=== PATIENT | female | born 2000 | race Caucasian/White ===

== ENCOUNTER 2025-07-27 12:34 | Emergency (ER) | payer OTHER, SELFPAY ==
--- OUTSIDE RECORDS SUMMARY | 2025-06-25 07:47 | XMS_ITS | Encounter Summary ---
Author Organization [facility] Address [address] [place] [address] Care Team Providers Care Inspector Hot Forgings Name Role Phone Elsewhere, Pcp Primary Care Provider Unavailabl e Reason for Visit * Reason Comments Weakness - Generalized Patient presents with mom and dad. They state patient has hx of POTS. She has episodes several times a year where she gets weak, has minimal vocal response, and has seizure like movements or tics. She does not have a seizure disorder diagnosed. Normally, they state these episodes last 45 minutes and she is able to ambulate. Today it is lasting longer, started at 0600, and she has been having difficulty walking. They states after these episodes she needs several days of rest to recover. Encounter Details Date Type Department Care Team (Late st Contact Info) Description 06/25/2025 7:47 AM CDT - 06/25/2025 10:37 AM CDT Emergency [facility] [address] [place] [address] [phone] Anita Barraza D.O. 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 - 06/25/2025 10:19 AM CDT Continue to take your home medications as prescribed. Ensure you are drinking 60-80 oz of water per day to stay hydrated. I encouraged at least 30 minutes of cardiac exercise per day wear your heart rate is persistently elevated above 120 beats per minute. This has been shown to help with autonomic dysregulation syndrome such as POTS. * Attachments The following attachments cannot be sent through Care Everywhere. * Syncope Adult [id number] (Tanzanian) documented in this encounter Medications at Time of Discharge cetirizine (ZyrTEC) 10 mg tablet Take 1 tablet by mouth daily. 07/06/2020 cholecalciferol (VITAMIN D3) 50 mcg (2,000 Unit) capsule Take 1 capsule by mouth daily. 09/13/2014 DULoxetine (CYMBALTA) [address] capsule Take 60 mg by mouth daily. 05/08/2023 EPINEPHrine 0.3 mg/0.3 mL injection syringe Inject 1 Pen intramuscularly daily as needed. 05/23/2023 ibuprofen (AdviL) 200 mg tablet Take by mouth as needed. 04/27/2013 ketotifen (ZADITOR) 0.025 % (0.035 %) ophthalmic solution Administer 1 drop into both eyes daily. 05/31/2021 levalbuterol (XOPENEX HFA) 45 mcg/actuation inhaler Inhale 1-2 puffs as needed. 05/08/2023 linaCLOtide (Linzess) 145 mcg capsule Take 1 capsule by mouth daily. 12/09/2024 multivitamin (One-A-Day Essential) tablet Take 1 tablet by mouth daily. pantoprazole (Protonix) 40 mg EC tablet Take 40 mg by mouth daily. Jewell 28 0.15-0.03 mg per tablet Take 1 tablet by mouth daily. 08/21/2023 SUMAtriptan (IMITREX) 25 mg tablet Take 25 mg by mouth every 2 (two) hours as needed. 05/31/2021 triamcinolone (NASACORT) 55 mcg/actuation nasal spray Administer 2 sprays into nostril(s) daily. 07/06/2020 documented as of this encounter ED Notes * Anita Barraza D.O. - 06/25/2025 10:37 AM CDT The patient verbally consented to an audio recording of their visit to assist with the completion of documentation. SUBJECTIVE CHIEF COMPLAINT/REASON FOR VISIT Weakness - Generalized (Patient presents with mom and dad. They state patient has hx of POTS. She has episodes several times a year where she gets weak, has minimal vocal response, and has seizurelike movements or tics. She does not have a seizure disorder diagnosed. Normally, they state theseepisodes last 45 minutes and she is able to ambulate. Today it is lasting longer, started at 0600, and she has been having difficulty walking. They states after these episodes she needs several days of rest to recover. ) HISTORY OF PRESENT ILLNESS History of Present Illness Sara Dela Cruz is a 25 year old female with POTS who presents with a fainting episode. She isaccompanied by her mother. She has a history of POTS diagnosed approximately 14 years ago following an illness. She experiences episodes a few times a year, characterized by feeling 'really kind of hot and tingling all over,' followed by cramping and a brief syncopal episode. During these episodes, she experiences sweating, clamminess, and a sensation of heat, which she recognizes as a precursor to fainting. A recent episode occurred while at work, where she felt these symptoms and sat down to prevent a fall. No trauma. She has undergone various diagnostic evaluations, including a Holter monitor in November, which showed a five-beat run of SVT, otherwise normal. She has had normal lab results in the past. No tongue biting, tongue trauma, or incontinence during these episodes. She reports a history of chronic fatigue, stating she 'never feels rested' upon waking. Her past medical history includes a tick bite and alpha-gal syndrome. She has undergone a colonoscopy and CT scan for abdominal issues in the past. She has not been diagnosed with anemia, and her periods are not described as excessively heavy. OBJECTIVE Initial Vitals Temperature 06/25/25 0812 37 ??C Pulse Rate 06/25/25 0745 86 Heart Rate 06/25/25 0745 88 Resp Rate 06/25/25 0745 (!) 27 Blood Pressure 06/25/25 0745 (!) 137/94 SpO2 06/25/25 0745 99 % Pain Score 06/25/25 0812 6 PHYSICAL EXAMINATION Constitutional: Nursing note and vitals reviewed. No distress. HENT: Head: Normocephalic. Mouth/Throat: Mucous membranes are moist. Eyes: Conjunctivae and EOM are normal. Pupils are equal, round, and reactive to light. Neck: Neck supple. Cardiovascular: Normal rate, regular rhythm and normal heart sounds. Pulmonary/Chest: Effort normal and breath sounds normal. There is normal air entry. Abdominal: Soft. There is no abdominal tenderness. Musculoskeletal: General: No edema. Cervical back: Neck supple. Neurological: Alert and oriented to person, place, and time. She has normal sensation and cranial nerves II through XII intact. GCS eye subscore is 4. GCS verbal subscore is 4. GCS motor subscore is 6. Normal speech. She exhibits normal muscle tone. Coordination and gait normal. Skin: Skin is warm and dry. ASSESSMENT/PLAN Medical Decision Making 25-year-old female with a history of POTS-like autonomic dysfunction presented after a recurrent syncopal episode at work, preceded by prodromal symptoms of feeling hot, tingling, and cramping, followed by brief loss of consciousness and myoclonic jerks. She has a longstanding history of similar episodes, chronic fatigue, and prior normal cardiac workup including EKG and Holter monitor. Exam was notable for normal vital signs, no evidence of seizure activity, and normal cardiopulmonary and neurologic findings. Urinalysis and EKG were normal during this visit. Differential diagnosis includes, but is not limited to: - Autonomic Dysfunction (POTS-like syndrome) with Syncope and Myoclonic Jerks: Recurrent syncope with myoclonic jerks is most consistent with autonomic dysfunction given longstanding history, normal cardiac workup, and absence of seizure features. - Seizure Disorder: Considered unlikely due to absence of tongue biting, incontinence, and supporting history or exam findings; myoclonic jerks attributed to syncope. Autonomic Dysfunction (POTS-like syndrome) with Syncope and Myoclonic Jerks and Chronic Fatigue - Administered IV fluids - Ordered urinalysis to assess concentration and check for protein or glucose spillage - Encouraged daily cardiac aerobic exercise - Discharged home with follow-up with primary care as needed Final Diagnoses: as of 06/25/252040 Syncope Anita Barraza D.O. 06/25/252044 documented in this encounter Plan of Treatment Not on file documented as of this encounter Procedures Procedure Name Priority Date/Time Associated Diagnosis Comments URINALYSIS WITH MICROSCOPIC IF INDICATED, U STAT 06/25/2025 9:42 AM CDT TEST, POCT, U (LAB) STAT 06/25/2025 9:42 AM CDT ECG STAT 06/25/2025 8:43 AM CDT GLUCOSE POCT, B Routine 06/25/2025 7:56 AM CDT documented in this encounter Results * Urinalysis with Microscopic if Indicated: Urine, Midstream (06/25/2025 9:42 AM CDT) Source Urine, Urine, Midstream 06/25/2025 9:47 AM CDT NPRG Clarity Clear Clear 06/25/2025 10:00 AM CDT NPRG Color Yellow 06/25/2025 10:00 AM CDT NPRG Comment: ----REFERENCE VALUE---- Colorless Yellow Myra Blood Negative Negative 06/25/2025 10:00 AM CDT NPRG Nitrite Negative Negative 06/25/2025 10:00 AM CDT NPRG Leukocyte Esterase Negative Negative 06/25/2025 10:00 AM CDT NPRG Protein Negative mg/dL 06/25/2025 10:00 AM CDT NPRG Comment: ----REFERENCE VALUE---- Negative Trace Glucose Negative Negative mg/dL 06/25/2025 10:00 AM CDT NPRG Ketones, QI(U) Negative Negative mg/dL 06/25/2025 10:00 AM CDT NPRG Bilirubin Negative Negative 06/25/2025 10:00 AM CDT NPRG pH 6.0 5.0 - 8.0 06/25/2025 10:00 AM CDT NPRG Specific [place] 1.010 1.001 - 1.035 06/25/2025 10:00 AM CDT NPRG Urobilinogen 0.2 0.2 - 1.0 mg/dL 06/25/2025 10:00 AM CDT NPRG Urine (Urine, Midstream) 06/25/2025 9:42 AM CDT 06/25/2025 9:47 AM CDT Anita Barraza D.O. LAB URINE ORDERABLES Final Resul t Performing Organization Address [facility] Co de Phone Number [facility] [address] [place] [address], [address] [address] * Test, POCT, Urine (Lab) (06/25/2025 9:42 AM CDT) Test, POCT, U Negative 06/25/2025 9:59 AM CDT NPRG Urine (Urine, Midstream) 06/25/2025 9:42 AM CDT 06/25/2025 9:47 AM CDT Anita Barraza D.O. LAB POCT ORDERABLES - DEVICE Fin al Result Performing Organization Address [facility] Co de Phone Number [facility] [address] [place] [address], [place] [phone] * ECG 12 Lead (06/25/2025 8:43 AM CDT) Ventricular Rate ECG/Min 81 BPM MUSE DE Interval 162 ms MUSE QRSD Interval 78 ms MUSE QT Interval 378 ms MUSE QTC Interval 439 ms MUSE P Delmont 49 degrees MUSE R [place] 76 degrees MUSE T Wave [place] 10 degrees MUSE 06/25/2025 8:43 AM CDT 06/25/2025 9:10 AM CDT Impressions MUSE - 06/25/2025 9:10 AM CDT Sinus rhythm Nonspecific T wave abnormality When compared with ECG of 22-Sep-2012 13:45, with sinus arrhythmia is no longer present Nonspecific T wave abnormality is now present Reviewed by CONOR Maldonado Narrative Procedure Note Meng Rajan Jr., M.D. - 06/25/2025 IMPRESSION: Sinus rhythm Nonspecific T wave abnormality When compared with ECG of 22-Sep-2012 13:45, with sinus arrhythmia is no longer present Nonspecific T wave abnormality is now present Reviewed by CONOR Maldonado us Anita Barraza D.O. ECG ORDERABLES Final Result MUSE NA * Glucose, POCT (06/25/2025 7:56 AM CDT) [facility] Glucose, POCT, B 103 70 - 140 mg/dL 06/25/2025 7:56 AM CDT NPRG Blood 06/25/2025 7:56 AM CDT 06/25/2025 8:02 AM CDT us Generic Rals LAB POCT ORDERABLES-MANUAL Final Result [facility] [address] [place] [address], [place] [facility] [address] [place] [address] documented in this encounter Visit Diagnoses Diagnosis Syncope- Primary documented in this encounter Administered Medications Inactive Administered Medications - up to 3 most recent administrations Medication Order MAR Action Action Date Dose Rate Site ketorolac injection 15 mg (ToradoL) 15 mg, intravenous, Once, On Sat06/25/25 at 0807, For 1 dose, Adult IV push rate: Over 15 seconds. Peds IV push rate: Over 1 minute. Doses > 15 mg IV/IM are discouraged due to lack of additional analgesic benefit. Given 06/25/2025 8:15 AM CDT 15 mg NaCl 0.9 % bolus 1,000 mL 1,000 mL, intravenous, at 1,000 mL/hr, Administer over 1 Hours, Once, On Sat06/25/25 at 0807, For 1 dose New Bag 06/25/2025 8:14 AM CDT 1,000 mL 100 0 mL/hr sodium chloride 0.9 % injection 2-10 mL 2-10 mL, intravenous, As needed, line care, Starting on Sat06/25/25 at 0835 documented in this encounter Active and Recently Administered Medications Times are shown in CDT. Scheduled Medication Order 06/23/2025 06/24/2025 06/25/2025 ketorolac injection 15 mg (ToradoL) (COMPLETED) 15 mg, intravenous, Once, On Sat06/25/25 at 0807, For 1 dose, Adult IV push rate: Over 15 seconds. Peds IV push rate: Over 1 minute. Doses > 15 mg IV/IM are discouraged due to lack of additional analgesic benefit. 0815 (Given - Provid er: Kerry Rueda R.N.) NaCl 0.9 % bolus 1,000 mL (COMPLETED) 1,000 mL, intravenous, at 1,000 mL/hr, Administer over 1 Hours, Once, On Sat06/25/25 at 0807, For 1 dose 0814 (New Bag - Prov ider: Kerry Rueda R.N.)0940 (Stopped - Provider: Kerry Rueda R.N.) PRN Medication Order 06/23/2025 06/24/2025 06/25/2025 sodium chloride 0.9 % injection 2-10 mL(Linked Group 1) 2-10 mL, intravenous, As needed, line care, Starting on Sat06/25/25 at 0835 Linked Groups Order Group 1: Place peripheral IV: No upper extremity site restrictions (CANCELED) Upper extremity site restriction: No upper extremity site restrictions, Quantity of PIVs requested: One, STAT, Once, On Sat06/25/25 at 0836, For 1 occurrence And sodium chloride 0.9 % injection 2-10 mLJump to med 2-10 mL, intravenous, As needed, line care, Starting on Sat06/25/25 at 0835 documented in this encounter Care Teams Inspector Hot Forgings Relationship Specialty Start Date End Date Elsewhere, Pcp PCP - General 04/06/19 documented as of this encounter
--- OUTSIDE RECORDS SUMMARY | 2025-07-27 12:36 | XMS_ITS | Clinical Summary ---
Author Organization [facility] Address [address] [place] [id number] Care Team Providers Care Insurance Instructor Name Role Phone Shauna Naranjo MD Unavailable [phone] Goran Kinney MD PhD Unavailable [phone] Charisse Will MD Unavailable [phone] Diego Wynn Unavailable Unavailable Rony Perea MD Unavailable [phone] Alberto Jay MD Unavailable [phone] Gonzalo Grajeda MD Unavailable Unavailable Elizabeth Medrano Primary Care Provider Kiarra Landry PA-C Unavailable [phone] Allergies Active Allergy Reactions Criticality Noted Date Comments Chicken Meat (Diagnostic) Anaphylaxis High ALL Meat Dust Mites Itching 04/24/2013 Other (Do Not Use) Anaphylaxis High 12/21/2024 Animal Renin Seasonal Allergies 04/24/2013 Medications cetirizine (ZYRTEC ALLERGY) 10 MG tablet Take 10 mg by mouth daily. Active Multiple Vitamin (DAILY MULTIVITAMIN PO) Take 1 tablet by mouth daily. Active Cholecalciferol (VITAMIN D) 2000 UNITS CAPS Take 2,000 Units by mouth daily Active levonorgestrel-et hinyl estradiol (NORDETTE) 0.15-30 MG-MCG per tablet Take 1 tablet by mouth daily Active pantoprazole (PROTONIX) 40 MG EC tablet Take 40 mg by mouth daily. Active linaclotide (LINZESS) 145 MCG capsule Take by mouth every morning (before breakfast). Active DULoxetine (CYMBALTA) 60 MG capsule Take 60 mg by mouth daily. Active vitamin C (ASCORBIC ACID) 1000 MG TABS Take 1,000 mg by mouth daily. Active EPINEPHrine (ANY BX GENERIC EQUIV) 0.3 MG/0.3ML injection 2-pack Inject 1 Pen into the muscle. 3 Active albuterol (PROAIR HFA/PROVENTIL HFA/VENTOLIN HFA) 108 (90 Base) MCG/ACT inhaler Inhale 1-2 puffs into the lungs. 4 Active Active Problems Problem Noted Date Diagnosed Date Fatigue 01/07/2014 Irregular menses 01/07/2014 POTS (postural orthostatic tachycardia syndrome) 01/07/2014 Dizziness 01/07/2014 Resolved Problems Problem Noted Date Diagnosed Date Resolved Date Hypoglycemia 01/13/2014 01/17/2015 Family History Medical History Relation Comments Colon Polyps Father Hypertension Father Aortic Valve Replacement Maternal Uncle 1 Mitral Valve Replacement Maternal Uncle 2 Atrial fibrillation Maternal Uncle 3 Aortic dissection Mother Thyroid Disease Other 1 Paternal aunt felton s a thyroid condition and a scar on her neck, but not sure what she has or whether she had thyroid surgery. Diabetes Other 2 The same paterna l aunt who has a thyroid condition has T2D. Also maternal uncle has thyroid disease Myocardial Infarction Paternal Grandfather 2 lou or to , 5x CABG Atrial fibrillation Paternal Grandmother Relation Status Comments Father Maternal Uncle 1 Alive Maternal Uncle 2 Alive Maternal Uncle 3 Alive Mother Other 1 Other 2 Paternal Grandfather Paternal Grandmother Social History Tobacco Use Types Packs/Day Years Used Date Smoking Tobacco: Never Smokeless Tobacco: Never Alcohol Use Standard Drinks/Week Comments Yes 0 (1 standard drink = 0.6 oz pur e alcohol) occ PHQ-2 Answer Date Recorded PHQ-2 Score 0 11/06/2024 Adolescent Education Answer Date Record ed Getting School Help Needed Not on file 07/01 Comments No Sex and Gender Information Value Date Recorded Sex Assigned at Not on file 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 Gender Identity Not on file Sexual Orientation Not on file Last Filed Vital Signs Vital Sign Reading Time Taken Comments Blood Pressure 108/78 12/21/2024 1:20 PM CDT Pulse 88 12/21/2024 1:20 PM CDT Temperature 37.3 C (99.1 F) 07/17/2021 12:05 PM CDT Respiratory Rate 65 01/10/2016 3:09 PM CDT Oxygen Saturation 100% 12/21/2024 1:20 PM CDT Inhaled Oxygen Concentration - - Weight 93.9 kg (207 lb) 12/21/2024 1:20 PM CDT Height 180.3 cm (5' 11) 12/21/2024 1:20 PM CDT Body Mass Index 28.87 12/21/2024 1:20 PM CDT Plan of Treatment Health Maintenance Due Date Last Done Comments ADVANCE CARE PLANNING 1998 ANNUAL REVIEW OF HM ORDERS 1998 PNEUMOCOCCAL VACCINE: PEDIAT RICS (0 to 5 YEARS) AND AT-RISK PATIENTS (6 to 49 YEARS) (1 of 2 - PCV) 2017 YEARLY PREVENTIVE VISIT 04/20/2025 04/20/2024 COVID-19 VACCINE (3 - 2024-2 6 season) 2025 01/24/2021, 12/27/2020 INFLUENZA VACCINE (#1) 2025 , 07/06/2020, 08/10/2018, Additional history exists PAP 04/20/2027 04/20/2024 DTAP/TDAP/TD VACCINE (9 - Td or Tdap) 09/22/2034 09/22/2024, 07/26/2011, 04/01/2009, Additional history exists ZOSTER VACCINE (1 of 2) 01/30/2048 HEPATITIS B VACCINE Completed 1998, 1998, 1998 MENINGITIS VACCINE Completed 08/06/2016 HPV VACCINE Completed 05/26/2019, 06/08, 08/06/2016 TSH W/FREE T4 REFLEX Discontinued 07/17/2021, 07/17/2021, 01/05/2015, Additional history exists HEPATITIS C SCREENING Completed 04/20/2024 HIV SCREENING Completed 04/20/2024 PHQ-2 (once per calendar year) Completed 11/06/2024 Procedures Procedure Name Priority Date/Time Associated Diagnosis Comments T4 FREE Routine 07/17/2021 1:12 PM CDT from Last 3 Months or Most Recently Relevant to Health Maintenance Results * T4 free (07/17/2021 1:12 PM CDT) Free T4 1.2 0.8 - 1.8 ng/dL [facility] Comment: Lab test performed by: Lab Mnemonic:[facility] [address] [place] [address] Orlin Hayden M.D. [facility] Specimen received date and time: 18-JUL-2021 02:21:00.00 Blood 07/17/2021 1:12 PM CDT 07/17/2021 1:13 PM CDT Pia Gonzales MD LAB - BLOOD ORDERABLES Final Result [facility] [address] [place], [place] [address] [phone] from Last 3 Months or Most Recently Relevant to Health Maintenance Insurance MEDICA CHOICE MEDICA CHOICE Advance Directives For more information, please contact: [phone] * Full Code (Latest Code Status on File) Date Activated Date Inactivated Comments 01/15/2014 7:14 PM 01/15/2014 7:17 PM * Full Code Date Activated Date Inactivated Comments 01/15/2014 10:58 AM 01/15/2014 7:14 PM Care Teams Insurance Instructor Relationship Specialty Start Date End Date Elizabeth Medrano PA [address] [facility] [address] PCP - General Family Practice 11/06/24 Shauna Naranjo MD [address] [place] [address] Pediatric Endocrinology 01/03/15 Goran Kinney MD PhD [address] [address] Pediatric Rheumatology 01/12/15 Charisse Will MD [address] [address] Pediatric Cardiology 01/13/15 Diego Wynn [address] [address] Referring Physician [facility] 01/14/15 Rony Perea MD [address] [place] [address] [id number] [place] [address] Pediatric Neurology 01/18/15 Alberto Jay MD ORTHOPEDIC FRACTURE [facility] [address] [place] [address] Referring Physician [facility] 02/10/15 Gonzalo Grajeda MD ORTHOPEDIC FRACTURE [facility] [address] [place] [address] Cardiovascular Disease 07/20/24 Kiarra Landry PA-C [address] [place], [place] [address] Assigned Heart and Vascular Provider 12/27/24
--- OUTSIDE RECORDS SUMMARY | 2025-07-27 12:37 | XMS_ITS | Clinical Summary ---
Author Organization [facility] Address [address] [place] [address] Care Team Providers Care Wind Turbine Design Engineer Name Role Phone Elsewhere, Pcp Primary Care Provider Unavailabl e Source Comments Patient records contain information from all sites at [facility]. For routine questions regarding patient records, call [phone] during business hours, M-F 8:00 AM - 5:00 PM Central Time. Record requests for emergency care only can be directed to [phone] at any time.[facility] Allergies Active Allergy Reactions Criticality Noted Date Comments Acetaminophen Anaphylaxis High 09/03/2023 Xmjorwsow-F-Xilwjrn-Elaine en-Brom Other (see comments) 04/20/2024 patient is allergic to all meat including beef, pork, chicken and turkey. Medications triamcinolone (NASACORT) 55 mcg/actuation nasal spray Administer 2 sprays into nostril(s) daily. 07/06/20 20 Active SUMAtriptan (IMITREX) 25 mg tablet Take 25 mg by mouth every 2 (two) hours as needed. 05/31/20 21 Active multivitamin (One-A-Day Essential) tablet Take 1 tablet by mouth daily. Active [place] 28 0.15-0.03 mg per tablet Take 1 tablet by mouth daily. 08/21/20 23 Active levalbuterol (XOPENEX HFA) 45 mcg/actuation inhaler Inhale 1-2 puffs as needed. 05/08/20 23 Active ketotifen (ZADITOR) 0.025 % (0.035 %) ophthalmic solution Administer 1 drop into both eyes daily. 05/31/20 21 Active ibuprofen (AdviL) 200 mg tablet Take by mouth as needed. 04/27/20 13 Active EPINEPHrine 0.3 mg/0.3 mL injection syringe Inject 1 Pen intramuscularly daily as needed. 05/23/20 23 Active DULoxetine (CYMBALTA) [address] capsule Take 60 mg by mouth daily. 05/08/20 23 Active cholecalcifero l (VITAMIN D3) 50 mcg (2,000 Unit) capsule Take 1 capsule by mouth daily. 09/13/20 14 Active cetirizine (ZyrTEC) 10 mg tablet Take 1 tablet by mouth daily. 07/06/20 20 Active pantoprazole (Protonix) 40 mg EC tablet Take 40 mg by mouth daily. Active linaCLOtide (Linzess) 145 mcg capsule Take 1 capsule by mouth daily. 12/10/19 25 Active Active Problems Problem Noted Date Diagnosed Date Constipation 06/25/2025 Gastroesophageal Reflux Disease Without Esophagi tis 07/29/2024 Fibromyalgia 03/21/2020 Asthma Mild Intermittent 08/06/2016 Other Intervertebral Disc Displacement Lumbar Re gion 03/23/2015 Postural Orthostatic Tachycardia Syndrome 2013 Dizziness 01/07/2014 Fatigue 01/07/2014 Scoliosis 08/26/2009 Rhinitis Allergic 02/17/2008 Encounters Date Type Department Care Team Description 06/25/2025 7:47 AM CDT - 06/25/2025 10:37 AM CDT Emergency [facility] [address] [place] [id number] Anita Barraza D.O. 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 Gender Identity Not on file Sexual Orientation Not on file Last Filed Vital Signs Vital Sign Reading Time Taken Comments Blood Pressure 123/84 06/25/2025 9:30 AM CDT Pulse 77 06/25/2025 8:15 AM CDT Temperature 37 C (98.6 F) 06/25/2025 8:12 AM CDT Respiratory Rate 19 06/25/2025 9:00 AM CDT Oxygen Saturation 95% 06/25/2025 8:15 AM CDT Inhaled Oxygen Concentration - - Weight 96.2 kg (212 lb 1.3 oz) 06/25/2025 8:10 A M CDT Height 175.4 cm (5' 9.06) 04/27/2013 1:47 PM CD T Body Mass Index - - Plan of Treatment Health Maintenance Due Date Last Done Comments Cervical/Vaginal Cancer Screening 1998 HIV Screening 1998 Hepatitis C Screening 1998 Hepatitis B Vaccines (1 of 3 - 19+ 3-dose series) 2017 Pneumococcal vaccine (0-49 y ears) (1 of 2 - PCV) 2017 Depression Screening (Annual PHQ-2) 10/07/2024 COVID-19 Vaccine (3 - 2024-2 6 season) 2025 01/24/2021, 12/27/2020 Influenza Vaccine (#1) 2025 , 07/06/2020, 08/10/2018, Additional history exists Asthma Action Plan 06/25/2025 Asthma Control Test Questionnaire 06/25/2025 Asthma Management/Exacerbati on Questionnaire (AMQ/AEQ) 06/25/2025 DTaP,Tdap,and Td Vaccines (9 - Td or Tdap) 09/22/2034 09/22/2024, 07/26/2011, 04/01/2009, Additional history exists IPV Vaccines Completed 04/12/2003, 10/08, 1998, Additional history exists HPV Vaccines Completed 05/26/2019, 06/08, 08/06/2016 Procedures Procedure Name Priority Date/Time Associated Diagnosis Comments URINALYSIS WITH MICROSCOPIC IF INDICATED, U STAT 06/25/2025 9:42 AM CDT TEST, POCT, U (LAB) STAT 06/25/2025 9:42 AM CDT ECG STAT 06/25/2025 8:43 AM CDT GLUCOSE POCT, B Routine 06/25/2025 7:56 AM CDT from Last 3 Months Results * Urinalysis with Microscopic if Indicated: [...] 8.0 06/25/2025 10:00 AM CDT NPRG Specific [place] 1.010 1.001 - 1.035 06/25/2025 10:00 AM CDT NPRG Urobilinogen 0.2 0.2 - 1.0 mg/dL 06/25/2025 10:00 AM CDT NPRG Urine (Urine, Midstream) 06/25/2025 9:42 AM CDT 06/25/2025 9:47 AM CDT us Anita Barraza D.O. LAB URINE ORDERABLES Final Resul t [facility] [address] [place] [address], [facility] NPRG [facility] [address] [place] [address] * Test, POCT, Urine (Lab) (06/25/2025 9:42 AM CDT) Test, POCT, U Negative 06/25/2025 9:59 AM CDT NPRG Urine (Urine, Midstream) 06/25/2025 9:42 AM CDT 06/25/2025 9:47 AM CDT Anita Barraza D.O. LAB POCT ORDERABLES - DEVICE Fin al Result Performing Organization Address City/[facility]/ZIP Co de Phone Number [facility] [address] [place] [address], [facility] NPRG [facility] [address] [place] [address] * ECG 12 Lead (06/25/2025 8:43 AM CDT) Ventricular Rate ECG/Min 81 BPM MUSE IL Interval 162 ms MUSE QRSD Interval 78 ms MUSE QT Interval 378 ms MUSE QTC Interval 439 ms MUSE P [place] 49 degrees MUSE R [place] 76 degrees MUSE T Wave [place] 10 degrees MUSE 06/25/2025 8:43 AM CDT [...] Anita Barraza D.O. ECG ORDERABLES Final Result Performing Organization Address City/[facility]/ZIP Co de Phone Number MUSE NA * Glucose, POCT (06/25/2025 7:56 AM CDT) Glucose, POCT, B 103 70 - 140 mg/dL 06/25/2025 7:56 AM CDT NPRG Blood 06/25/2025 7:56 AM CDT 06/25/2025 8:02 AM CDT us Generic [facility] POCT ORDERABLES-MANUAL Final Result [facility] [address] [place] [address], [facility] NPRG [facility] [address] [place] [address] from Last 3 Months Insurance MEDICA Care Teams Wind Turbine Design Engineer Relationship Specialty Start Date End Date Elsewhere, Pcp PCP - General 04/06/19
--- OUTSIDE RECORDS SUMMARY | 2025-07-27 12:37 | XMS_ITS | Encounter Summary ---
Author Organization [facility] Address [address] [place] [address] Care Team Providers Care Resident In Diagnostic Radiology Name Role Phone Shauna Naranjo MD Unavailable [phone] Goran Kinney MD PhD Unavailable [phone] Charisse Will MD Unavailable [phone] Diego Wynn Unavailable Unavailable Rony Perea MD Unavailable Alberto Jay MD Unavailable [phone] Gonzalo Grajeda MD Unavailable Unavailable Elizabeth Medrano Primary Care Provider [phone] Gonzalo Grajeda MD Unavailable Unavailable Kiarra LandryC Unavailable [phone] Encounter Details Date Type Department Care Team (Late st Contact Info) Description 12/25/2024 MyC Medical Advice [facility] Centralized Scheduling [facility] [place] [address] Danish Lerma Social History Tobacco Use Types Packs/Day Years [...] on file 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 Gender Identity Not on file Sexual Orientation Not on file documented as of this encounter Plan of Treatment Not on file documented as of this encounter Visit Diagnoses Not on filedocumented in this encounter Care Teams Resident In Diagnostic Radiology Relationship Specialty Start Date End Date Elizabeth Medrano PA [address] [place] [address] PCP - General Family Practice 11/06/24 Shauna Naranjo MD [address] [place] [address] Pediatric Endocrinology 01/03/15 Goran Kinney MD PhD [address] [address] Pediatric Rheumatology 01/12/15 Charisse Will MD [address] [address] Pediatric Cardiology 01/13/15 Diego Wynn [address] [address] Referring Physician Family Practice 01/14/15 Rony Perea MD [address] [place] [address] [id number] [address] Pediatric Neurology 01/18/15 Alberto Jay MD [facility]THOPEDIC [facility] [address] [place] [address] Referring Physician Family Practice 02/10/15 Gonzalo Grajeda MD ORTHOPEDIC [facility]RACTURE [facility] [address] [place] [address] Cardiovascular Disease 07/20/24 Gonzalo Grajeda MD Assigned Heart and Vascular Provider 11/29/24 12/26/24 Kiarra Landry PA-C [address] [id number] Assigned Heart and Vascular Provider 12/27/24 documented as of this encounter
--- OUTSIDE RECORDS SUMMARY | 2025-07-27 12:37 | XMS_ITS | Clinical Summary ---
Author Organization [facility] Address [address] [place] [address] Care Team Providers Care Hose Handler Name Role Phone Mitchell Elizabeth CAMARGO Primary Care Provider [phone] Allergies Active Allergy Reactions Criticality Noted Date Comments Acetaminophen Anaphylaxis High 09/03/2023 Dust Mites Shortness Of Breath,Runny Nose,Itching 04/24/2013 Ixccjnoah-H-Nrliona-Elaine en-Brom Other - Describe In Comment Field 04/20/2024 patient is allergic to all meat including beef, pork, chicken and turkey. Medications cetirizine (ZYRTEC) 10 mg tabletIndicatio ns:Chronic allergic rhinitis Take 1 tablet by mouth once daily. 0 020 Active ketotifen (ZADITOR) 0.025 % (0.035 %) ophthalmic solution 1 Drop 2 times daily. 5 mL 021 Active montelukast (SINGULAIR) 10 mg tabletIndicatio ns:Mild intermittent asthma without complication (HC) Take 1 Tablet (10 mg) by mouth at bedtime. 90 Tablet 1 024 Active DULoxetine (CYMBALTA) 60 mg Delayed-release capsuleIndicati ons:Fibromyalgi a Take 1 Capsule (60 mg) by mouth once daily. 90 Capsule 3 024 Active albuterol HFA (PRO-AIR; VENTOLIN; PROVENTIL) 90 mcg/actuation inhalerIndicati ons:Mild intermittent asthma without complication (HC) Inhale 1-2 Puffs by mouth every 4 hours if needed for Shortness Of Breath or Wheezing. 1 Each 5 024 Active omeprazole (PRILOSEC) 40 mg Delayed-Release capsuleIndicati ons:Chronic GERD Take 1 Capsule (40 mg) by mouth once daily before a meal. 90 Capsule 3 024 Active EPINEPHrine (EpiPen) 0.3 mg/0.3 mL auto-injectorIn dications:Perso nal history of anaphylaxis Inject 0.3 mg (1 Pen) intramuscular one time if needed for Allergic Reaction. 2 Each 2 024 Active nystatin powder (MYCOSTATIN) powderIndicatio ns:Rash Apply 1 Strip topically to affected area(s) three times daily. 60 g Active [place] 28 0.15-0.03 mg tabletIndicatio ns:Dysmenorrhea TAKE ONE TABLET BY MOUTH ONCE DAILY 84 Tablet Active doxycycline hyclate 100 mg capsuleIndicati ons:Acute non-recurrent sinusitis, unspecified location Take 1 Capsule (100 mg) by mouth two times daily for 5 days. 10 Capsule 025 2024 Active SUMAtriptan (IMITREX) 25 mg tabletIndicatio ns:Migraine syndrome Give at minimum 2hrs apart. Max Dose: 200mg per 24hrs. 10 Tablet 3 025 Active levonorgestrel- ethinyl estrad (0.15-30 mg-mcg) ([place] 28) 0.15-0.03 mg tabletIndicatio ns:Dysmenorrhea TAKE ONE TABLET BY MOUTH ONCE DAILY 84 Tablet 025 2024 Discontinued Active Problems Problem Noted Date Diagnosed Date Pap smear for cervical cancer screening 04/29/20 24 Overview (04/29/2024): 04/2024 NIL/ HPV negative Plan: PAP/ HPV due 04/2029 Fibromyalgia 03/21/2020 Multiple food allergies 05/01/2017 Overview (05/01/2017): [place] high histamine foods like cheeses History of hypothyroidism 08/06/2016 Mild intermittent asthma without complication Right L4-5 small focal disk herniation 06/17/201 5 POTS (postural orthostatic tachycardia syndrome) 01/07/2014 Irregular menses 01/07/2014 Fatigue 01/07/2014 Dizziness 01/07/2014 Scoliosis 08/26/2009 Allergic rhinitis, cause unspecified 02/17/2008 Resolved Problems Problem Noted Date Diagnosed Date Resolved Date Scoliosis 08/02/2010 08/02/2010 Encounters Date Type Department Care Team Description 07/27/2025 11:35 AM CDT Office Visit [facility] [address] [place] [address] Briseyda Brown PA Throat Problem; Fever; Fatigue 07/27/2025 Travel 07/09/2025 Refill [facility] [address] [place] [address] Sienna Campbell MD Refill Request ([place] 28) from Last 3 Months Immunizations Immunization Administration Dates Next Due AMB Influenza, IIV3 (Age >=3 years) Preserve Free (Flu Clinic Only) 07/25/2012 AMB Influenza, IIV4 PF (=>6 mos Flulaval,Fluzone Fluarix)(Flu Clinic Only) 07/16/2016 COVID-19 vaccine (Moderna 100mcg/0.5mL) PF, MDV 01/24/2021,12/27/2020 DTaP 04/12/2003, 9,1998,06/08,1998 HPV 9 (Gardasil 9) 05/26/2019,07/01/2018, 016 Hepatitis A (Peds) 05/01/2017,08/06/2016 Hepatitis B (Peds) 1998,1998, 998 Hib Conjugate, Unspecified 05/01/1999,1998 ,1998 Inactivated Polio Vaccine 04/12/2003,,1998,03/14 Influenza Virus, Unspecified 09/11/2013 Influenza, IIV3 (Age 6-35 mos) 08/18/2015,2011,07/26/2011 Influenza, IIV3 (Age >=3 years) 09/25/2014,07/26,08/12/2008 Influenza, IIV4 08/20/2023, 0,08/10/2018,10/01,07/16/2016 MENINGOCOCCAL VACCINE 2 VIAL 2MO-55YO (MENVEO) 08/06/2016 MMR 04/12/2003,05/01/1999 Rabies Vaccine 04/05/2013,04/02/2013 Tdap 07/26/2011,04/01/2009 Varicella Vaccine 07/26/2011,08/02/1999 Family History Medical History Relation Name Comments Good Health Father Good Health Mother Good Health Sister Relation Name Status Comments Father Alive Mother Alive Sister Social History Tobacco Use Types Packs/Day Years Used Date Smoking Tobacco: Never Smokeless Tobacco: Never Tobacco Cessation:Counseling Given: Yes Alcohol Use Standard Drinks/Week Comments Not Currently 0 (1 standard drink = 0.6 oz pure alcohol) 2 days weekly, 2 drinks at a sittting PHQ-2 Answer Date Recorded PHQ-2 TOTAL SCORE 0 04/20/2024 Social Connections Answer Date Recorded Do you often feel lonely or isolated from those around you? 0 04/20/2024 Financial Resource Strain Answer Date R ecorded Difficulty of Paying Living Expenses 3 04/20/2024 Difficulty of Paying Living Expenses Not on file 04/20/2024 Food Insecurity Answer Date Recorded Do you worry your food will run out before you are able to buy more? 1 04/20/2024 Transportation Needs Answer Date Record ed Does lack of transportation keep you from medica l appointments? 1 04/20/2024 Does lack of transportation keep you from work, meetings or getting things that you need? 1 04/20/2024 Housing Stability Answer Date Recorded What is your housing situation today? 1 04/20/2024 Utilities Answer Date Recorded Do you have trouble paying f or utilities (for example, heat, electricity, water, phone)? 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 Not on file Not on file Not on file Travel History Travel Start Travel End Greg 07/14/2025 07/24/2025 Obstetrics History Para Term AB IAB SAB Ectopic Multiple Livin g Live Births 0 0 0 0 0 0 0 0 0 0 Last Filed Vital Signs Vital Sign Reading Time Taken Comments Blood Pressure 130/88 07/27/2025 11:48 AM CDT Pulse 123 07/27/2025 11:48 AM CDT Temperature 37.2 C (98.9 F) 07/13/2024 2:02 PM CDT Respiratory Rate 17 08/30/2023 8:45 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 Oxygen Saturation 94% 07/27/2025 11: 48 AM CDT Inhaled Oxygen Concentration - - Weight 90.2 kg (198 lb 12.8 oz) 07/13/2024 2:02 PM CDT Height 179.5 cm (5' 10.67) 04/20/2024 4:39 PM C DT Body Mass Index 27.99 04/20/2024 4:39 PM CDT Plan of Treatment Health Maintenance Due Date Last Done Comments Pneumococcal series for age 6-49 (1 of 2 - PCV) 2017 Tetanus booster 07/26/2021 07/26/2011, 04/01/2009 BMI (ht and wt on same day) for age 18+ 04/20/2025 04/20/2024, 05/31/2021, 07/06/2020, Additional history exists Depression screening for age 12+ 04/20/2025 04/20/2024, 07/06/2020, 10/02/2019, Additional history exists COVID-19 vaccine series ( - 2024- season) 2025 01/24/2021, 12/27/2020 Influenza Vaccine (#1) 2025 3, 07/06/2020, 08/10/2018, Additional history exists Pap test for age 21-65 04/20/2029 4, 04/20/2024, 05/26/2019 RSV vaccine for adults or (1 - 1-dose 75+ series) 2073 Hepatitis B series for 19+ Completed 11/03, 1998, 1998 HPV series for age 9-45 Completed 05/26/20 19, 07/01/2018, 08/06/2016 HIV for age 15-65 Completed 04/20/2024 Hepatitis C screening for ag e 18-79 Completed 04/20/2024 Procedures Procedure Name Priority Date/Time Associated Diagnosis Comments THROAT RAPID STREP ONLY CLINIC Routine 07/27/2025 11:50 AM CDT Sore throat ANTI HIV 1/2 Routine 04/20/2024 6:06 PM CDT Screening for HIV (human immunodeficiency virus) ANTI HCV Routine 04/20/2024 6:06 PM CDT Need for hepatitis C screening test HPV HIGH RISK Routine 04/20/2024 5:30 PM CDT Screening for cervical cancer from Last 3 Months or Most Recently Relevant to Health Maintenance Results * THROAT RAPID STREP ONLY CLINIC (07/27/2025 11:50 AM CDT) [facility] POC, GROUP A STREP NOT DETECTED NOT DETECTED 07/27/2025 12:03 PM CDT [facility] Comment: The [place] [employer] recommends that a throat culture be performed if a rapid group A streptococcus assay yields a negative result. [facility] recommends Streptococcus, Group A culture. Throat SPECIMEN FROM THROAT / Unknown Non-Blood / Unknown 07/27/2025 11:50 AM CDT 07/27/2025 11:53 AM CDT Briseyda CAMARGO MICROBIOLOGY Final Result [employer] [facility] [address] [place] [address], [place] [phone] [facility] [address] [place] [address], [place] [phone] * ANTI HCV (04/20/2024 6:06 PM CDT) [facility] HEPATITIS C ANTIBODY Non-Reacti ve Non-React cabrera 04/21/2024 2:36 AM CDT [facility] Comment:Please note, per www .CDC.gov: If a patient is known to be at high risk of HCV infection, or is symptomatic, and the physician's suspicion of HCV infection is high, HCV RNA testing is often employed and is of diagnostic value, even after an initial negative anti-HCV test result. Blood BLOOD SPECIMEN / Unknown Venipuncture / Unknown 04/20/2024 6:06 PM CDT 04/20/2024 6:09 PM CDT Sienna Campbell MD SEND OUTS Final Result Performing Organization Address City/[facility]/ZIP Co de Phone Number [facility] [address] [address], [place] * ANTI HIV 1/2 [84886.0] (04/20/2024 6:06 PM CDT) [facility] HIV-1/HIV-2 SCREEN Non-Reacti ve Non-Reacti ve 04/21/2024 2:04 AM CDT [facility] Comment:HIV-1 p24 and HIV-1/ HIV-2 Ab Not Detected. Blood BLOOD SPECIMEN / Unknown Venipuncture / Unknown 04/20/2024 6:06 PM CDT 04/20/2024 6:09 PM CDT Sienna Campbell MD SEND OUTS Final Result Performing Organization Address [facility] Co de Phone Number [facility] [address] [address], [place] * HPV HIGH RISK (04/20/2024 5:30 PM CDT) TYPE 16 Negative Negative 04/27/2024 5:19 PM CDT [facility] TYPE 18 Negative Negative 04/27/2024 5:19 PM CDT [facility] OTHER HIGH RISK TYPES Negative Negative 04/27/2024 5:19 PM CDT [facility] Other (Cervical) Non-Blood / Unknown 04/20/2024 5:30 PM CDT 04/23/2024 10:50 AM CDT Narrative [facility] - 04/27/2024 5:19 PM CDT HPV types 16, 18, 31, 33, 35, 39, 45, 51, 52, 56, 58, 59, 66 and 68 DNA were undetectable or below the pre-set threshold. Methodology: Kenny Jr 4800 HPV Test us Sienna Campbell MD MICROBIOLOGY Final Result [facility] [address] [place] [id number], from Last 3 Months or Most Recently Relevant to Health Maintenance Additional Health Concerns Infection Onset Date Last Indicated Rule-Out COVID-19 07/27/2025 07/27/2025 Insurance MEDICA CHOICE Care Teams Hose Handler Relationship Specialty Start Date End Date Elizabeth Medrano PA [address] [place] [address] PCP - General Physician Steam Blocker 05/08/23
[2025-07-27 12:48] VITALS: BP 135/86; PULSE 130; RESP 18; TEMP 37.8; O2SAT 98; BMI 27.2
[2025-07-27 13:38] LABS: PCR FLU A Negative PCR FLU A (Negative); PCR FLU B Negative PCR FLU B (Negative); PCR RSV Negative PCR RSV (Negative); SARS PCR* POSITIVE SARS-CoV-2 (Negative)
--- NOTE | 2025-07-27 13:50 | ED.GENADULT ---
HPI - General Adult General Date Seen: 07/27/25 Chief complaint: Fever Stated complaint: Fever, back pain Time Seen by Provider: 07/27/25 13:41 History of Present Illness HPI narrative: 25-year-old female presenting to the ER today with her family with concern for headache as well as other symptoms. She has no previous visits to [place]. She does have a few records any [facility] medical record. She has a history of POTS, mild intermittent asthma, hypothyroidism, fatigue, fibromyalgia, multiple food allergies, and history scoliosis and a history of of right lumbar 4-5 disc herniation. She has been healthy and well lately. She just got back from a trip to [place] ([place] in [place]). She flew home on Saturday. She began developed symptoms of sore throat the following morning on Saturday morning and since then has also developed headache, low back pain, body aches, fatigue, weakness, cough. She has had increasing headache today. She does not have any fevers. Cough is nonproductive. She is not really short of breath. She saw her doctor in clinic today and because of the severity of her headache, her clinic doctor suggested that she should come to the ER to be evaluated in case she had meningitis. The clinic doctor did not feel they could do a proper and comprehensive evaluation there. Related Data Home Medications ?Medication ?Instructions ?Recorded ?Confirmed duloxetine 60 mg capsule,delayed 60 mg PO DAILY 07/27/25 07/27/25 release levonorgestrel 0.15 mg-ethinyl 1 tab PO DAILY 07/27/25 07/27/25 estradiol 0.03 mg tablet (Quinter 28) linaclotide 290 mcg capsule 290 mcg PO DAILY 07/27/25 07/27/25 (Linzess) montelukast 10 mg tablet 10 mg PO QPM 07/27/25 07/27/25 pantoprazole 20 mg tablet,delayed 20 mg PO DAILY 07/27/25 07/27/25 release pantoprazole 40 mg tablet,delayed 40 mg PO DAILY 07/27/25 07/27/25 release Previous Rx's ?Medication ?Instructions ?Recorded nirmatrelvir 300 mg (150 mg See Rx Instructions PO .COMPLEX 07/27/25 x2)-ritonavir 100 mg tablet,dose #30 ea pack (Paxlovid) Allergies Allergy/AdvReac Type Severity Reaction Status Date / Time meat Allergy Anaphylaxis Uncoded 07/27/25 12:46 [facility] Social History Smoking Status: Never smoker How often do you have a drink containing alcohol: never AUDIT-C Alcohol total score: 0 Non-prescribed substance use: denies use Exam Narrative: Exam Narrative: Constitutional: Appears well-developed and well-nourished. Alert. Looks rundown and tired but overall his polite and Conversant. Non toxic. HENT: Head: Atraumatic. Nose: Nose normal. Mouth/Throat: Oral mucosa is clear and moist. no trismus. Pharynx normal. Tonsils symmetric. No tonsillar enlargement, erythema, or exudate. Eyes: Conjunctivae normal. EOM normal. Pupils equal, round, and reactive to light. No scleral icterus. Neck: Normal range of motion including full flexion and extension, lateral rotation in both directions. No stiffness or ?meningismus. ?. Neck supple. No tracheal deviation present. Cardiovascular: Tachycardic, regular rhythm. No gallop. No friction rub. No murmur heard. Symmetric radial artery pulses Pulmonary/Chest: Effort normal. Frequent dry cough. No stridor. No respiratory distress. No wheezes. No rales. No rhonchi . No tenderness. Abdominal: Soft. No distension. No mass. No tenderness. No rebound. No guarding. Musculoskeletal: RUE: Normal range of motion. No tenderness. No deformity LUE: Normal range of motion. No tenderness. No deformity RLE: Normal range of motion. No edema. No tenderness. No deformity LLE: Normal range of motion. No edema. No tenderness. No deformity Neurological: Alert and oriented to person, place, and time. Normal strength. CN II-VII intact. No sensory deficit. GCS eye subscore is 4. GCS verbal subscore is 5. GCS motor subscore is 6. Normal coordination Skin: Skin is warm and dry. No rash noted. No pallor. Normal capillary refill. Psychiatric: Normal mood. Normal affect. Polite. Const: Vital Signs, click to edit/add: Vital Signs - 24 hr 07/27/25 12:48 Temperature 100.1 F H Pulse Rate [Pulse Oximeter] 130 H Respiratory Rate 18 Blood Pressure [Ri ght Upper Arm] 135/86 Pulse Oximetry 98 Course Vital Signs Vital signs: Initial Vital Signs Temperature 100.1 F H 07/27/25 12:48 Temperature Source Temporal Artery Scan 07/27/25 12:48 Pulse Rate 130 H 07/27/25 12:48 Respiratory Rate 18 07/27/25 12:48 Blood Pressure 135/86 07/27/25 12:48 Blood Pressure Mean 102 07/27/25 12:48 Pulse Oximetry 98 07/27/25 12:48 Vital Signs Temperature 100.1 F H 07/27/25 12:48 Pulse Rate 130 H 07/27/25 12:48 Respiratory Rate 18 07/27/25 12:48 Blood Pressure 135/86 07/27/25 12:48 Pulse Oximetry 98 07/27/25 12:48 Temperature 100.1 F H 07/27/25 12:48 Pulse Rate 130 H 07/27/25 12:48 Respiratory Rate 18 07/27/25 12:48 Blood Pressure 135/86 07/27/25 12:48 Pulse Oximetry 98 07/27/25 12:48 Medical Decision Making MDM Narrative Medical decision making narrative: This patient presents for evaluation of headache, low back pain, body aches cough, sore throat ongoing now for about 2 or 3 days. Because of the severity of her headache her primary clinic center to the ER for us to evaluate for possible meningitis. However, based on the totality of her symptoms, my clinical suspicion is high that this is not a bacterial meningitis. I had a detailed discussion with the patient and her mother and father at her bedside that the only way to definitively rule out meningitis would be spinal tap and CSF analysis. However, since she is overall clinically well appearing and has very good neck range of motion, I think the likelihood of Bactrim angiitis is low. At this point we feel that the risk of discomfort and complications of the lumbar puncture (such as post spinal headache) would outweigh the benefit of detecting meningitis since we feel the clinical probability of meningitis is exceedingly low. Overall her symptoms are most consistent with an upper respiratory tract infection. Viral testing positive for COVID which is known to cause all the symptoms, including bad headaches. At this point although she is tachycardic, she is not hypoxic or short of breath. At this point her COVID would fall into the mild category. She does not currently require hospitalizations. Given her medical comorbidities including asthma, pots, we feel that she could fall into a high risk category for deterioration and developing severe COVID. Therefore we will start her on Paxlovid. He did review her medications through the liver pull interaction die drawing checker. Recommended that she can not continue on all of her regular meds. She should use additional means of contraception until after her next. Since there is a theoretical interaction between Paxlovid and her control pill. There is no signs at this point of serious bacterial infection such as OM, RPA, epiglottitis, CAKE PUNCHER, strep pharyngitis, pneumonia, sinusitis, meningitis, bacteremia, serious bacterial infection. Given clear lungs, fever curve, no hypoxia and no respiratory distress I do not feel a CXR is indicated at this point as the probability of bacterial pneumonia is very unlikely. There are no significant gastrointestinal symptoms at this point. With her tachycardia we did discussed IV placement for IV fluid bolus but she feels as though she will be able to hydrate at home.. Close followup with primary care physician is indicated. Return to ED for worsening headache, confusion, vomiting, high fever, worsening shortness of breath, chest pain,, or other worsening. Lab Data Labs: Lab Results 07/27/25 Range/Units 12:52 SARS-CoV-2 (PCR) POSITIVE SARS-CoV-2 A (Negative) Influenza Type A (PCR) Negative PCR FLU A (Negative) Influenza Type B (PCR) Negative PCR FLU B (Negative) RSV (PCR) Negative PCR RSV (Negative) Discharge Plan Discharge Clinical Impression: COVID-19 Patient Disposition: Home, Self-Care Condition: Stable Instructions: COVID-19 (Coronavirus Disease 2019) (ED), COVID-19: Slow the Coronavirus Spread (ED) Additional Instructions: As we discussed, your workup today shows that you have COVID. To manage her COVID, the most important thing is to take good care of yourself. Drink plenty of fluids, soup and vegetable broth, and at healthy foods as tolerated. Work hard to avoid dehydration. You can use ibuprofen if needed for headache and body aches. As we discussed, a small percentage of people who have COVID will developed severe COVID with low oxygen and difficulty breathing. Today your oxygen level looks wonderful. We are going to start you on Paxlovid which is an antiviral medication that you take twice daily for 5 days to reduce the chances of developing severe COVID. You do not have to change any of your other regular medications, since there are no significant interactions between Paxlovid and your medications. Try to avoid spreading COVID. rest and stay home at least until you a been afebrile for more than 24 hours and, on the whole, your symptoms are getting better. For 10 total days, Until 08/04/2025, if you have to leave home, you should wear a mask when you around other people. Please come back to the ER right away if you have worsening symptoms especially worsening severe headache, uncontrolled vomiting, high fever, trouble breathing, chest pain. Prescriptions: New Paxlovid 300 mg (150 mg x 2)-100 mg tablets,dose pack See Rx Instructions .ROUTE .COMPLEX Qty: 30 0RF Rx Instructions: take TWO 150 mg tablets of nirmatrelvir with ONE 100 mg tablet of ritonavir twice daily for 5 days No Action levonorgestrel-ethinyl estrad [Quinter 28] 0.15-0.03 mg tablet 1 tab PO DAILY pantoprazole 20 mg tablet,delayed release (DR/EC) 20 mg PO DAILY pantoprazole 40 mg tablet,delayed release (DR/EC) 40 mg PO DAILY montelukast 10 mg tablet 10 mg PO QPM duloxetine 60 mg capsule,delayed release(DR/EC) 60 mg PO DAILY Linzess 290 mcg capsule 290 mcg PO DAILY Follow Up/Referrals: Diego Wynn MD [Primary Care Provider, Family Practice] Stand Alone Forms: [facility]/School Release, [facility] Info Instructions
== END 2025-07-27 15:13 | disposition home or self-care (01) ==
LOC: ED 15:11
PROVIDERS: Emergency Provider Emergency Medicine; PCP Family Medicine
DX: U07.1 COVID-19 (principal)
CPT/HCPCS: 87631; 99283